=== PATIENT | female | born 1980 | race Caucasian/White ===

== ENCOUNTER 2021-06-27 19:19 | Emergency (ER) | payer MEDICAID ==
[~2021-06-27] VITALS: Ht 175.3 cm; Wt 77.3 kg
[~2021-06-27 19:19] MED LIST: MONT10TA21 PO
--- NOTE | 2021-06-27 19:49 | NUR ---
PT'S HANDS CYANOTIC BILATERALLY, WAS IN TO SEE PT IN BED 17, ORDER TAKEN FOR NICHOLE
[2021-06-27] MEDS ORDERED: ondansetron/PF 4mg/2ml inj IV ONE (19:50)
[2021-06-27 20:30] LABS: BASOPHILS % (AUTO) 0.2 % (0-1); EOSINOPHILS # (AUTO) 0.2 X10'3 (0-0.9); EOSINOPHILS % (AUTO) 2.8 % (0-6); HEMATOCRIT 35.8 % (35.0-45.0); HEMOGLOBIN 12.5 g/dl (12.0-16.0); LYMPHOCYTES # (AUTO) 2.5 X10'3 (1.1-4.8); LYMPHOCYTES % (AUTO) 30.8 % (21-51); MEAN CORPUSCULAR HEMOGLOBIN 33.9 PG (27.0-31.0); MEAN CORPUSCULAR VOLUME 97.1 FL (78-98); MEAN PLATELET VOLUME 8.1 FL (7.4-10.4); MONOCYTES # (AUTO) 0.3 X10'3 (0-0.9); MONOCYTES % (AUTO) 3.8 % (2-12); NEUTROPHILS % (AUTO) 62.4 % (42-75); PLATELET COUNT 293 X10'3 (140-440); RED BLOOD COUNT 3.69 X10'6 (4.20-5.60); RED CELL DISTRIBUTION WIDTH 13.7 % (11.5-14.5)
[2021-06-27 20:38] LABS: ALANINE AMINOTRANSFERASE 22 U/L (12-78); ALBUMIN 3.7 G/DL (3.4-5.0); ALBUMIN/GLOBULIN RATIO 1.1 (1.1-1.5); ALKALINE PHOSPHATASE 88 IU/L (46-116); ANION GAP 9 (8-16); BILIRUBIN,TOTAL 0.7 MG/DL (0.1-1.0); BLOOD UREA NITROGEN 15 MG/DL (7-18); BUN/CREATININE RATIO 18.8 (6.6-38.0); CALCIUM 7.7 MG/DL (8.5-10.1); CHLORIDE 103 MMOL/L (99-107); LIPASE 77 U/L (73-393); SODIUM 134 MMOL/L (135-145); TOTAL CARBON DIOXIDE 22.1 MMOL/L (24-32); eGFR 79 ML/MIN
[2021-06-27 20:45] LABS: GLUCOSE 217 MG/DL (70-104); POTASSIUM 4.3 MMOL/L (3.5-5.1)
[2021-06-27 20:52] LABS: ASPARTATE AMINO TRANSFERASE 18 U/L (10-37)
[2021-06-27 21:11] VITALS: BP 114/70
== END 2021-06-27 21:13 | disposition home or self-care (01) ==
LOC: ER 19:19
DX: R10.84 Generalized abdominal pain (principal); T78.8XXA Other adverse effects, not elsewhere classified, initial encounter; Z79.899 Other long term (current) drug therapy; Y92.89 Other specified places as the place of occurrence of the external cause
CPT/HCPCS: 36415; 80053; 83690; 85025; 96374; 99283; J2405